=== PATIENT | male | born 1950 ===

== ENCOUNTER 2018-04-13 17:26 | Inpatient (IN) | payer MEDICARE ==
--- NOTE | 2018-04-13 18:30 | CT ---
CT BRAIN WITHOUT CONTRAST: 04/13/18 HISTORY: Altered mental status. Right sided weakness and slurred speech. No acute territorial infarct or hemorrhage. No midline shift or mass effect. Ventricular size and ext ra-axial CSF spaces are normal for age. Mild atrophy. The paranasal sinuses and mastoids are clear. The calvarium is intact. IMPRESSION: No acute intracranial abnormality. POS: [facility]
[2018-04-13 18:31] LABS: #Basophils 0.1 thou/uL (0.0-0.2); #Eosinphils 0.5 thou/uL (0.0-0.7); #Lymphocytes 2.8 thou/uL (1.20-3.40); #Monocytes 0.5 thou/uL (0.11-0.59); #Neutrophils 6.4 thou/uL (1.40-6.50); %Basophils 0.7 % (0.0-1.0); %Eosinophils 5.2 % (0.0-10.0); %Lymphocytes 27.2 % (21.0-51.0); %Monocytes 5.1 % (0.0-10.0); %Neutrophils 61.8 % (42.0-75.0); Hemoglobin 15.9 g/dL (14.0-18.0); Mean Corpuscular HGB CONC 33.8 g/dL (32.0-36.0); Mean Corpuscular Hemoglobin 29.7 pg (27.0-31.0); Mean Corpuscular Volume 87.9 fL (78.0-98.0); Mean Platelet Volume 7.8 fL (7.4-10.4); Platelet Count 264 thou/uL (130-400); RBC Distribution Width 12.3 % (11.5-14.5); Red Blood Cell (RBC) Count 5.37 mill/uL (4.70-6.10); White Blood Cell (WBC) Count 10.4 thou/uL (4.8-10.8)
[2018-04-13 18:33] LABS: PTT 29.1 SEC (22.9-36.1); Prothrombin Time 13.4 SEC (12.0-14.7)
[2018-04-13 18:50] LABS: ALT (SGPT) 13 U/L (8-55); AST (SGOT) 22 U/L (5-34); Albumin 4.9 g/dL (3.4-4.8); Alkaline Phosphatase 80 U/L (40-150); Anion Gap 18 mmol/L (10-20); BUN (Urea Nitrogen) 28 mg/dL (8.4-25.7); Bilirubin, Total 0.5 mg/dL (0.2-1.2); Calc. Creatinine Clearance 0 mL/min (70-130); Calcium 9.7 mg/dL (7.8-10.44); Carbon Dioxide 18 mmol/L (23-31); Chloride 106 mmol/L (98-107); Estimated GFR-MDRD 41; Globulin 2.9 g/dL (2.4-3.5); Glucose 131 mg/dL (80-115); Potassium 4.9 mmol/L (3.5-5.1); Protein, Total 7.8 g/dL (5.8-8.1); Sodium 137 mmol/L (136-145)
[2018-04-13] MEDS ORDERED: Aspirin 325 MG TAB ONE (19:36)
[2018-04-13] MEDS ORDERED: Ondansetron PF 4 MG/2 ML Vial IVP PRN (21:48)
[2018-04-13] MEDS ORDERED: Ondansetron ODT 4 MG TAB SL PRN (21:48)
[2018-04-13 22:24] VITALS: BMI 29.3
[2018-04-13] MEDS ORDERED: Dextrose 50% Abboject 50 ML SYRINGE SLOW IVP PRN (23:53)
[2018-04-13] MEDS ORDERED: HYDROcodone/Acetaminophen 5/325 mg Tablet PO PRN (23:53)
[2018-04-13] MEDS ORDERED: Acetaminophen 325 MG TAB PO PRN (23:53)
[2018-04-13] MEDS ORDERED: Dextrose 5% in Water 1,000 ML IV PRN (23:53)
[2018-04-13] MEDS ORDERED: hydrALAZINE 20 MG/ML VIAL SLOW IVP PRN (23:53)
--- NOTE | 2018-04-14 00:31 | HP ---
CHIEF COMPLAINT: Right upper extremity and lower extremity weakness. PRIMARY CARE PHYSICIAN: Patient unable to recall the name. HISTORY OF PRESENT ILLNESS: Mr. Adams is a 68-year-old male with past medical history of hypertension, diabetes type 2, and hypercholesteremia, presents to the emergency department for weakness of his right upper extremity and right lower extremity for 5 days. Symptoms started on Monday and has been all improving. The patient reports that he was dragging his right lower extremity. He also noted that his right hand was weaker. He denies any numbness at all. The patient also denies any chest pain, shortness of breath, or abdominal pain. The patient reports that he is taking metformin and glipizide for his diabetes. The patient reported that he has been on statin in the past and he developed muscle cramps. He was taken off and then put back in, he still had the same problem, and he was taken off permanently. The patient denies any history of stroke. PAST MEDICAL HISTORY: Diabetes, hyperlipidemia. PAST SURGICAL HISTORY: Vasectomy. SOCIAL HISTORY: Denies smoking, drinking alcohol, or use of any illicit drugs. ALLERGIES: STATIN. THE PATIENT REPORTS CRAMPS IN HIS LOWER EXTREMITIES WITH STATINS. FAMILY HISTORY: The patient reports that his father of cancer. REVIEW OF SYSTEMS: 10-point review of system negative other than mentioned in the HPI. PHYSICAL EXAMINATION: VITAL SIGNS: Blood pressure 148/83, pulse 63, respiratory rate 18, temperature 97.7, and O2 saturation 95% on room air. CONSTITUTIONAL: Alert and oriented. HEENT: Head is atraumatic. Ears and nose exam grossly normal without any abnormality noted. Throat and mouth, no exudate noted. NECK: No lymphadenopathy noted. CARDIOVASCULAR: No murmur, rubs, or gallops. Regular rate and rhythm. RESPIRATORY: No wheezes or rales noted. Clear bilaterally. ABDOMEN: Bowel sounds positive. Soft and nontender. EXTREMITIES: No edema noted. NEUROLOGIC: Cranial nerve intact grossly. The patient is alert and oriented x3. Sensation intact bilaterally. Strength, right upper extremity and right lower extremity 4/5, left upper and lower extremity strength fully intact. PSYCH: Mood appears to be normal. SKIN: No abdominal rashes noted. CT head negative for acute CVA. EKG reviewed to be normal sinus rhythm. LABORATORY DATA: Labs reviewed. His BMP is significant for creatinine of 1.68, which appeared to be around his baseline. CBC unremarkable and coagulation lab also unremarkable as well. ASSESSMENT AND PLAN: 1. Right upper and lower extremity weakness, likely concerning for cerebrovascular accident. The patient did not receive tPA because he was outside the therapeutic window since the symptoms started around 5 days ago. Neurology consulted. CT head within normal limits with no acute stroke noted. Ultrasound of carotid echocardiogram ordered. Neuro consulted. The patient did pass all of the evaluation per RN, so we will start the patient's diet. Lipid panel in the morning. Fall precautions at this point. The patient was given aspirin and we will start the patient on aspirin. 2. Hypertension. The patient is known to be hypertensive. Unclear if the patient is on any blood pressure medication. We will allow permissive hypertension and will have hydralazine p.r.n. 3. Chronic kidney disease stage 3. The patient appears to be around his baseline. 4. Diabetes 2. We will hold the patient's p.o. medication and will manage with low-dose sliding scale insulin while in-house. 5. Hyperlipidemia. Unable to start his statin due to suspected history of rhabdomyolysis. Lipid panel in the morning. Consider fenofibrate or gemfibrozil once the lipid panel has resulted. 6. Deep venous thrombosis prophylaxis addressed. The patient is full code. Medical power of patent prosecution attorney. The patient wants his children to make decision for him if he is not able to. He is . 7. CKD III: Stable Job ID: [id number] [facility]
[2018-04-14 07:00] LABS: #Basophils 0.1 thou/uL (0.0-0.2); #Eosinphils 0.7 thou/uL (0.0-0.7); #Lymphocytes 2.9 thou/uL (1.20-3.40); #Monocytes 0.6 thou/uL (0.11-0.59); #Neutrophils 5.4 thou/uL (1.40-6.50); %Basophils 0.9 % (0.0-1.0); %Eosinophils 6.7 % (0.0-10.0); %Lymphocytes 30.3 % (21.0-51.0); %Monocytes 6.6 % (0.0-10.0); %Neutrophils 55.5 % (42.0-75.0); Hemoglobin 13.9 g/dL (14.0-18.0); Mean Corpuscular HGB CONC 33.7 g/dL (32.0-36.0); Mean Corpuscular Hemoglobin 29.2 pg (27.0-31.0); Mean Corpuscular Volume 86.9 fL (78.0-98.0); Mean Platelet Volume 7.5 fL (7.4-10.4); Platelet Count 245 thou/uL (130-400); Red Blood Cell (RBC) Count 4.74 mill/uL (4.70-6.10); White Blood Cell (WBC) Count 9.7 thou/uL (4.8-10.8)
[2018-04-14 07:16] LABS: Anion Gap 12 mmol/L (10-20); BUN (Urea Nitrogen) 28 mg/dL (8.4-25.7); Calc. Creatinine Clearance 45 mL/min (70-130); Calcium 9.5 mg/dL (7.8-10.44); Carbon Dioxide 22 mmol/L (23-31); Cardiac Risk 5.4 (Less than 4.5); Chloride 105 mmol/L (98-107); Cholesterol 182 mg/dl (< 200 Desired); Estimated GFR-MDRD 42; Glucose 121 mg/dL (80-115); HDL Cholesterol 34 mg/dL (>60 Neg Risk); LDL Cholesterol, Calculated 107 mg/dL; Sodium 135 mmol/L (136-145); Triglycerides 206 mg/dL (Less than 150)
[2018-04-14] MEDS ORDERED: Aspirin 81 mg Enteric Coated Tablet PO SCH (09:00)
[2018-04-14] MEDS ORDERED: Heparin 5,000 UNITS/ML VIAL SC SCH (09:00)
[2018-04-14] MEDS: Aspirin 325 mg Enteric Coated Tablet PO SCH (09:10)
[2018-04-14] MEDS: Heparin 5,000 UNITS/ML VIAL SC SCH ×2 (09:10→20:24)
--- NOTE | 2018-04-14 09:26 | ULT ---
CAROTID DUPLEX SONOGRAM: HISTORY: CVA. Vascular disease. FINDINGS: RIGHT: No significant plaque. Color and spectral Doppler evaluation, peak systolic velocity 44 cm/s, and IC to CC ratio suggests no hemodynamically significant stenosis within the extracranial ICA. Antegrade flow within the vertebral artery. LEFT: No significant plaque visible. Color and spectral Doppler evaluation, peak systolic velocity of 56 c m/s, and IC to CC ratio of 0.6 suggests no hemodynamically significant stenosis within the extracrani al left ICA. Antegrade flow is present within the vertebral artery. IMPRESSION: No significant plaque apparent. No sonographic evidence of significant extracranial internal carotid artery stenosis. POS: [facility]
[2018-04-14] MEDS ORDERED: HumaLOG 300 UNITS/3 ML VIAL SC PRN (10:07)
--- NOTE | 2018-04-14 11:15 | MRI ---
MRI OF THE BRAIN WITHOUT CONTRAST: COMPARISON: None. HISTORY: Left leg foot drop and loss of balance. Slurred speech. TECHNIQUE: Multiplanar, multisequence MR images were obtained of the brain without contrast. FINDINGS: There is an area of high FLAIR signal and restricted diffusion in the left cerebral peduncle consiste nt with an acute infarction. There are no other areas of restricted diffusion. There is no evidence of hydrocephalus, intracranial hemorrhage, or extraaxial fluid collection. The expected flow voids are present. The corpus callosum, pituitary, and craniocervical junction are unr emarkable. IMPRESSION: Acute infarction in the left cerebral peduncle. POS: [facility]
--- NOTE | 2018-04-14 13:46 | CON ---
DATE OF CONSULTATION: CHIEF COMPLAINT: Right-sided weakness. HISTORY OF PRESENT ILLNESS: The patient is a 68-year-old man, who reports he has developed difficulties with his right arm on Monday. He could not write. He was unable to keep his arm steady. He was dragging his right foot at work. He never had a stroke, therefore decided he needed to come in. He also developed some speech problems, which were mild. The patient reports no symptoms on the left side. He never had a prior stroke. He has hypertension, diabetes, and hypercholesterolemia, which are risk factors for him. No vision problems. No dizziness. PREVIOUS MEDICAL HISTORY: Positive for diabetes, hypertension, and hypercholesterolemia. He was unable to take statins due to knee pain and weakness of his legs. FAMILY HISTORY: Negative for CVA. Father at 65 from a lymphoma. Mother at 48 from tuberculosis. He has 4 brothers. SOCIAL HISTORY: He is a nonsmoker. Does not drink alcohol. He is a cnc lathe machinist by trade, but retired in 2016. REVIEW OF SYSTEMS: PULMONARY: Negative for any shortness of breath or cough. CARDIAC: Negative for chest pain or dizziness or palpitations. NEUROLOGICAL: Positive for "incoordination" in the right side and difficulty with walking. DERMATOLOGIC: Negative for any rash or skin changes. HEMATOLOGIC: Negative for any clotting disorder or bleeding diathesis. ENDOCRINE: Positive for diabetes. OPHTHALMOLOGIC: Negative for any vision changes. PHYSICAL EXAMINATION: VITAL SIGNS: Blood pressure is 170/85, temperature 98.5, pulse 73, and respiratory rate 16. GENERAL APPEARANCE: Thin built, well-nourished gentleman, who is very pleasant. CHEST: Clear vesicular breathing. CARDIOVASCULAR: S1 and S2 heard. No murmurs. ABDOMEN: Soft. NEUROLOGICAL: Higher intellectual functions normal. Orientation to time, place, and person and appropriate conversation. Cranial nerves; pupils are 3 mm, reactive. Normal extraocular movements. He had facial droop on the right side with asymmetry. Palate elevates normally. Tongue is midline. Normal hearing to finger rub. Normal sensation of face bilaterally. Motor exam; bulk normal. Tone normal. Strength 5/5 in iliopsoas, hamstrings, quadriceps, ankle dorsiflexion, plantar flexion, deltoid, triceps, biceps, wrist extension and flexion, and finger extension and flexion bilaterally. Cerebellar exam; he has asymmetry with incoordination on the right side. Deep tendon reflexes were 2+ in upper extremities, absent knee jerk on the right, 2+ in ankles, and 1+ in the left knee date. Gait, he has mild difficulty with walking, mostly with right side. Cerebellar, incoordination on the right side. Sensory, normal to touch and proprioception. CURRENT LABORATORY WORKUP: White count 9.7, hemoglobin 13.9, hematocrit 41.2, and platelets 245. Chemistry; sodium 135, potassium 4.0, chloride 105, BUN is 28, creatinine 1.63, and glucose 121. Triglycerides 206, cholesterol 182, LDL 107, HDL 34, heart disease risk ratio 5.4. PT 13.4, INR 1.0, and PTT 29.1. IMAGING DATA: His brain MRI scan showed no acute infarction in the left cerebral peduncle and carotid Doppler showed no significant plaque. No sonographic evidence of extracranial internal carotid artery stenosis. Brain CT was done and that showed no acute intracranial abnormality. IMPRESSION: The patient is a 68-year-old man, who reports right-sided abnormalities and he has had no dysarthria or vision problems. His MRI shows stroke in the left cerebral peduncle, which is consistent with the findings we are seen. This is likely due to small vessel ischemic event from diabetes or hypertension. RECOMMENDATIONS: Control of risk factors. The patient education about hypertension management and consider another agent other than statin for his cholesterol, aspirin for stroke prophylaxis. I will continue to follow him and review his stroke workup including echocardiogram. Job ID: [id number]
[2018-04-14] MEDS: HumaLOG 300 UNITS/3 ML VIAL SC PRN ×2 (15:51→19:14)
[2018-04-14] MEDS ORDERED: hydrALAZINE 20 MG/ML VIAL SLOW IVP PRN (16:45)
[2018-04-14] MEDS ORDERED: Labetalol HCl 100 MG/20 ML VIAL SLOW IVP PRN (16:45)
[2018-04-14] MEDS ORDERED: Atorvastatin Calcium 40 MG TAB PO SCH (21:00)
[2018-04-14] MEDS ORDERED: Propranolol HCl 20 MG TAB PO SCH (21:00)
--- NOTE | 2018-04-14 22:21 | PRG ---
DATE OF SERVICE: 04/14/2018 SUBJECTIVE: The patient denies any new focal deficit. No headaches, seizures, or double vision reported. Slurring of speech is improving. REVIEW OF SYSTEMS: No nausea, vomiting, chest pain, or palpitations. All other review of systems were reviewed and were found negative. PHYSICAL EXAMINATION: VITAL SIGNS: Temperature 98.4, pulse rate of 90, blood pressure 168/95, O2 saturation 96% on room air, and respiration of 18. GENERAL: 68-year-old male, in no apparent distress. He denies any chest pain. NECK: Supple. No JVD. No carotid bruit. LUNGS: Clear to auscultation bilaterally. No wheezing, rales, or rhonchi. HEART: S1 and S2 present. Regular rate and rhythm. No murmurs, rubs, or gallops appreciated. ABDOMEN: Soft, nontender. Bowel sounds present. NEUROLOGIC: Right upper and right lower extremity strength is 4/5. Sensation to touch was normal bilaterally. Minimal facial droop. No other focal deficit. PSYCHIATRY: Alert, awake, and oriented x3. LABORATORY DATA: LDL 107, cholesterol 182, triglyceride 206. WBC 9.7, hemoglobin 13.9, INR 1.0. Sodium 135, creatinine 1.63, BUN 28. Troponin negative. MRI of the brain by my review showed acute infarction in the left cerebral peduncle. Carotid Doppler was negative for hemodynamically significant stenosis. Telemetry monitoring by my review showed sinus rhythm. IMPRESSION: 1. 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 2. Dyslipidemia with statin intolerance. 3. Diabetes mellitus type 2. 4. Hypertension. 5. Chronic kidney disease stage 3. PLAN: The patient has been seen by Neurology. I also discussed the case with Dr. Giron. The patient takes aspirin [address] Giron advised to increase aspirin to 325 mg daily. We will continue heparin for DVT prophylaxis. No statin due to intolerance. We will resume Inderal at low dose. We will gradually resume his other antihypertensives. Continue diabetic diet. P.r.n. antihypertensives for blood pressure more than 180. Continue glipizide at low dose. We will resume amlodipine in a.m. We will discontinue metformin. Plan was discussed with the patient. He stated understanding. Job ID: [id number]
[2018-04-15] MEDS ORDERED: glipiZIDE 5 MG TAB PO SCH (07:30)
[2018-04-15] MEDS ORDERED: Lisinopril 10 MG TAB PO SCH (09:00)
[2018-04-15] MEDS ORDERED: Amlodipine 5 MG TAB PO SCH (09:00)
[2018-04-15] MEDS ORDERED: Propranolol 40 MG TAB PO SCH (09:00)
[2018-04-15] MEDS: Aspirin 325 mg Enteric Coated Tablet PO SCH (09:01)
[2018-04-15] MEDS: Heparin 5,000 UNITS/ML VIAL SC SCH (09:02)
[2018-04-15 11:44] VITALS: BP 139/82; TEMP 98.4
[2018-04-15] MEDS: HumaLOG 300 UNITS/3 ML VIAL SC PRN (12:47)
--- NOTE | 2018-04-15 17:05 | DIS ---
DATE OF ADMISSION: 04/13/2018 DATE OF DISCHARGE: 04/15/2018 DISCHARGE DISPOSITION: Home. FOLLOWUP: 1. Follow up with primary care physician, Dr. Navarrete, in 1 week. 2. Follow up with Dr. Frank, Neurology, in 2 weeks. ALLERGIES: THE PATIENT CANNOT TOLERATE STATINS. THE PATIENT WAS SEEN AND EXAMINED ON THE DAY OF DISCHARGE. DENIES ANY NEW COMPLAINTS. NO NEW FOCAL DEFICIT. BRIEF HOSPITAL COURSE: The patient is a 68-year-old male with hypertension; hyperlipidemia; and diabetes mellitus, type 2, presented to the hospital with right-sided weakness. His workup was consistent with acute CVA involving the left cerebral peduncle. Echocardiogram showed normal left ventricular ejection fraction of 55% to 60% with diastolic dysfunction and mild mitral and tricuspid regurgitation. Carotid Doppler was negative for hemodynamically significant stenosis. Lifestyle modification was emphasized. His triglyceride was 206 with cholesterol 182, LDL 107, and HDL of 34. Please note that, the patient is unable to tolerate statins. He was advised to follow up with his primary care physician. Outpatient occupation therapy has been arranged. Aspirin has been increased to 325 mg daily per Neurology recommendation. All other home medications were left unchanged. FINAL DIAGNOSES: 1. 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 2. Dyslipidemia with statin intolerance. 3. Diabetes mellitus, type 2. 4. Hypertension. 5. Chronic kidney disease, stage 3. 6. Mild hyponatremia. PLAN: Plan of care was discussed with the patient in detail, he stated understanding. Job ID: [id number] [id number]
== END 2018-04-15 14:22 | disposition home or self-care (01) | DRG 65 ==
LOC: ERS 17:26 → 2SE 21:36
PROVIDERS: ADMIT Family Medicine; ATTEND Family Medicine
DX: I63.9 Cerebral infarction, unspecified (principal); G81.91 Hemiplegia, unspecified affecting right dominant side; E87.1 Hypo-osmolality and hyponatremia; I12.9 Hypertensive chronic kidney disease with stage 1 through stage 4 chronic kidney disease, or unspecified chronic kidney disease; N18.3 Chronic kidney disease, stage 3 (moderate); E11.22 Type 2 diabetes mellitus with diabetic chronic kidney disease; E78.5 Hyperlipidemia, unspecified; T50.995A Adverse effect of other drugs, medicaments and biological substances, initial encounter; Z88.8 Allergy status to other drugs, medicaments and biological substances; Z98.52 Vasectomy status
CPT/HCPCS: 36415; 36416; 70450; 70551; 80048; 80053; 80061; 84484; 85025; 85610; 85730; 93005; 93306; 93880; J1644